=== PATIENT | female | born 1980 | race Caucasian/White ===

== ENCOUNTER 2018-09-21 18:12 | Emergency (ER) | payer OTHER ==
[~2018-09-21] VITALS: Ht 165.1 cm; Wt 72.0 kg
[~2018-09-21 18:12] MED LIST: AMIT25TA9 PO; ATOR40TA68 PO; BLOO-1202 MC; BLOO1STR MC; GABA300C16 PO; INSU100V14 SC; LANT3I SC; LISI10TA2 PO; MTF1000T PO
[2018-09-21 18:20] VITALS: Ht 165.1 cm; Wt 72.0 kg
[2018-09-21] MEDS ORDERED: ONDANSETRON (ODT) 4 MG TAB ODT STA (20:30)
[2018-09-21] MEDS ORDERED: ACETAMINOPHEN 500 MG TAB PO STA (20:30)
--- NOTE | 2018-09-21 20:41 | ERD ---
ER Documentation Chief Complaint Chief Complaint pt is bib self with c/o back pain and loss of appetite for a few days HPI This is a 38-year-old female patient who presents emergency room with multiple complaints including generalized body pain, fatigue, right-sided flank pain and pain in her perineum. Patient denies fevers, denies dysuria, + nausea, no vomiting. Patient states that she is diabetic and has been prescribed insulin but she is not taking it because she does not have insurance right now. ROS All systems reviewed and are negative except as per history of present illness. Medications Home Meds Active Scripts Acetaminophen* (Tylophen*) 500 Mg Capsule, 2 CAP PO Q8H PRN for PAIN AND OR ELEVATED TEMP, #20 CAP Prov:JALEEL HENRIQUEZ NP 09/22/18 Metformin HCl (Metformin HCl ER) 500 Mg [id number], 500 MG PO QHS for hyperglycemia for 30 Days, #30 TAB Prov:JALEEL HENRIQUEZ NP 09/22/18 Metformin* (Glucophage*) 500 Mg Tab, 500 MG PO BID for hyperglycemia for 30 Days, #60 TAB Prov:JALEEL HENRIQUEZ NP 09/22/18 Cephalexin* (Keflex*) 500 Mg Capsule, 500 MG PO QID for abscess for 7 Days, #28 CAP Prov:JALEEL HENRIQUEZ NP 09/22/18 Blood-Glucose Meter (Advanced Glucose Meter) 1 Each Each, 1 EACH MC, #1 Prov:HOLLEY ANTON MD 06/17/15 Blood Sugar Diagnostic (GLUCOCARD 01 SENSOR) 1 Each Strip, 1 EACH MC TID, #90 STRIP Prov:HOLLEY ANTON MD 06/17/15 Reported Medications Atorvastatin* (Atorvastatin*) 40 Mg Tablet, 40 MG PO QHS, #30 TAB 06/17/15 Lisinopril* (Lisinopril*) 10 Mg Tablet, 10 MG PO DAILY, #30 TAB 06/17/15 Amitriptyline Hcl* (Amitriptyline Hcl*) 25 Mg Tablet, 25 MG PO QHS, #30 TAB 06/17/15 Gabapentin* (Gabapentin*) 300 Mg Capsule, 300 MG PO TID, #90 CAP 06/17/15 Insulin Regular, Human (Humulin R) 100 Units/Ml Vial, 15 UNITS SC SLIDING SCALE AC, VIAL 06/17/15 Insulin Glargine* (Lantus*) 100 Unit/Ml Soln, 35 UNIT SC BID, #1 VIAL 06/17/15 Metformin* (Glucophage*) 1,000 Mg Tablet, 1000 MG PO BID, #60 TAB 06/17/15 Discontinued Scripts Sulfamethoxazole/Trimethoprim* (Bactrim Ds* Tablet) 1 Each Tablet, 1 TAB PO BID for abscess, #14 TAB Prov:JALEEL HENRIQUEZ [employer] 09/22/18 Allergies Allergies: Coded Allergies: No Known Drug Allergy (Verified Allergy, Unknown, 04/09/11) PMhx/Soc History of Surgery: Yes (gallstones, c section) Anesthesia Reaction: No Hx Neurological Disorder: No Hx Respiratory Disorders: No Hx Cardiac Disorders: Yes (htn) Hx Psychiatric Problems: No Hx Miscellaneous Medical Probl: No (DIABETES, HYPERLIPEDEMIA ) Hx Alcohol Use: No Hx Substance Use: No Hx Tobacco Use: No Smoking Status: Never smoker FmHx Family History: diabetes Physical Exam Vitals Vital Signs Date Temp Pulse Resp B/P (MAP) Pulse Ox O2 O2 Flow FiO2 Time Delivery Rate 09/22/18 98.5 91 18 135/86 100 Room Air 00:52 (102) 09/21/18 98.3 102 18 145/80 99 18:20 (101) Physical Exam Const: No acute distress Head: Atraumatic Eyes: Normal Conjunctiva, PERRL ENT: Normal External Ears, Nose and Mouth. Pharynx pink, moist, no lesions or exudates, no petechiae Neck: Full range of motion. No meningismus. No lymphadenopathy, bl mild thyromegaly Resp: Clear to auscultation bilaterally Cardio: Regular rate and rhythm, no murmurs Abd: Soft, non tender, non distended. Normal bowel sounds. Large scar across abdomen patient does not know what surgery she had. Skin: Right perineum: +swelling, +redness, +tender, +induration Back: No midline or flank tenderness, +CVT right Ext: No cyanosis, or edema Neur: Awake and alert, CNII-XII intact, clear speech, steady gait Psych: Normal Mood and Affect Result Diagram: 09/21/18192509/21/181925 Results 24 hrs Laboratory Tests Test 09/21/18 19:26 09/21/18 19:35 09/21/18 19:36 09/21/18 20:51 White Blood Count 16.3 10^3/ul Red Blood Count 5.08 10^6/ul Hemoglobin 14.9 g/dl Hematocrit 46.5 % Mean Corpuscular 91.5 fl Volume Mean Corpuscular 29.3 pg Hemoglobin Mean Corpuscular 32.0 g/dl Hemoglobin Concent Red Cell 12.2 % Distribution Width Platelet Count 248 10^3/UL Mean Platelet 11.7 fl Volume Immature 0.600 % Granulocytes % Neutrophils % 82.5 % Lymphocytes % 10.5 % Monocytes % 5.5 % Eosinophils % 0.6 % Basophils % 0.3 % Nucleated Red 0.0 /100WBC Blood Cells % Immature 0.100 10^3/ul Granulocytes # Neutrophils # 13.5 10^3/ul Lymphocytes # 1.7 10^3/ul Monocytes # 0.9 10^3/ul Eosinophils # 0.1 10^3/ul Basophils # 0.1 10^3/ul Nucleated Red 0.0 10^3/ul Blood Cells # Urine Color COLORLESS Urine Clarity CLEAR Urine pH 5.0 Urine Specific 1.027 [place] Urine Ketones 2+ mg/dL Urine Nitrite NEGATIVE mg/dL Urine Bilirubin NEGATIVE mg/dL Urine Urobilinogen NEGATIVE mg/dL Urine Leukocyte NEGATIVE Lyle/ul Esterase Urine Microscopic 1 /HPF RBC Urine Microscopic 0 /HPF WBC Urine Hemoglobin 1+ mg/dL Urine Glucose 3+ mg/dL Urine Total 1+ mg/dl Protein Urine NEGATIVE Test Sodium Level 132 mmol/L Potassium Level 4.4 mmol/L Chloride Level 95 mmol/L Carbon Dioxide 16 mmol/L Level Anion Gap 21 Blood Urea 17 mg/dl Nitrogen Creatinine 0.70 mg/dl Est Glomerular > 60 mL/min Filtrat Rate mL/min Glucose Level 443 mg/dl Calcium Level 10.0 mg/dl POC Beta HCG, NEGATIVE Qualitative Bedside Urine pH 5.0 (LAB) Bedside Urine 2+ Protein (LAB) Bedside Urine 0.50% Glucose (UA) Bedside Urine 4+ Ketones (LAB) Bedside Urine Trace-intact Blood Bedside Urine Negative Nitrite (LAB) Bedside Urine Negative Leukocyte Esterase (L Bedside Glucose 420 mg/dL Test 09/22/18 00:10 Bedside Glucose 342 mg/dL Current Medications Medications Dose Sig/[place] Start Time Status Last (Trade) Ordered Route PRN Stop Time Admin Dose Reason Admin 1,000 mg ONCE STAT 09/21/18 DC 09/21/18 Acetaminophen PO 20:30 20:47 (Tylenol 09/21/18 20:35 Tab) Ondansetron 4 mg ONCE STAT 09/21/18 DC 09/21/18 HCl (Zofran ODT 20:30 20:47 Odt) 09/21/18 20:35 Lidocaine 20 ml ONCE ONCE 09/21/18 DC (Xylocaine SC 21:00 1% (Mdv) 20 09/21/18 21:01 ml) Sodium 1,000 ml @ Q1H ONCE 09/21/18 DC 09/21/18 Chloride 1,000 mls/hr IV 21:00 20:57 09/21/18 21:59 Insulin 10 unit ONCE ONCE 09/22/18 DC Human IV 00:00 Regular 09/22/18 00:13 (Humulin R) Procedures/MDM PROCEDURES/MDM PROCEDURES: Abscess Incision and Drainage with irrigation by me: Location: left perineum Anesthesia: Local 1% Lidocaine Technique: Irrigated. Disrupted loculations w/ instrumentation Packing: None Complications: Neurovascularly intact post procedure 48 hour wound check. LAB INTERPRETATION: +leukocytosis, normal BUN/creat, Hyperglycemia, +anion gap. +urine ketones, +urine glucose -Medications: NS, Tylenol, zofran, Patient tolerated medication well with no adverse reactions. Patient reported improvement in pain. MDM: This is a 38-year-old female patient who presents to the ED with multiple complaints including generalized body pain, fatigue, right-sided flank pain and pain in her perineum. Patient states she is diabetic and has not been taking her insulin as she has run out of her medications and has not followed-up with her provider. She was hydrated with resulting lowered glucose, vital signs stable at time of reevaluation and discharge. Patient's diabetic symptoms have stabilized her in the emergency department and appears appropriate for outpatient management. No evidence at this time of DKA, hyperosmolar syndrome, or severe systemic infection. This patients soft tissue infection appears to be appropriate for outpatient treatment with close follow-up for reevaluation by a clinician within 24-48 hours. A serious, rapidly progressive infectious process is unlikely based upon the patients presentation and appearance of the infection. Antibiotic treatment has been initiated here and response to treatment will be based on reassessment at close follow-up. The patient has been instructed on signs and symptoms of acute progression of infection and to return immediately if any of these occur. DISPOSITION and PLAN: RX: Tylenol, Keflex, Metformin The patient has been discharge home to follow-up with community physician. Departure Diagnosis: Primary Impression: Hyperglycemia Additional Impression: Abscess Condition: Stable JALEEL HENRIQUEZ NP Sep 21, 2018 20:41
[2018-09-21] MEDS ORDERED: ONDANSETRON (ODT) 4 MG TAB ODT ONE (20:43)
[2018-09-21] MEDS ORDERED: ACETAMINOPHEN 500 MG TAB ONE (20:43)
[2018-09-21] MEDS ORDERED: LIDOCAINE 2% (MDV) 20 ML INJ ONE (20:54)
[2018-09-21] MEDS ORDERED: SOD CHLORIDE 0.9% 1,000 ML IV ONE (21:00)
[2018-09-21] MEDS ORDERED: LIDOCAINE 1% (MDV) 20 ML INJ SC ONE (21:00)
[2018-09-22] MEDS ORDERED: INSULIN REGULAR, HUMAN 100 UNIT/1 ML 3ML VIAL IV ONE
[2018-09-22] MEDS ORDERED: SULF1TAB31 PO (00:25)
[2018-09-22] MEDS ORDERED: CEPH-443 PO (00:25)
[2018-09-22] MEDS ORDERED: METF-849 PO (00:28)
[2018-09-22] MEDS ORDERED: METF-730 PO (00:28)
[2018-09-22] MEDS ORDERED: ACET500C5 PO (00:31)
[2018-09-22 00:52] VITALS: BP 135/86; PULSE 91; RESP 18
== END 2018-09-22 00:55 | disposition home or self-care (01) ==
LOC: FTE 18:12
DX: L02.215 Cutaneous abscess of perineum (principal); E11.65 Type 2 diabetes mellitus with hyperglycemia; I10 Essential (primary) hypertension; Z79.4 Long term (current) use of insulin
CPT/HCPCS: 46050; 80048; 81001; 81025; 82962; 84703; 85025; J7030; Z7610; 81003; 96360; 96361